=== PATIENT | male | born 1980 | race Caucasian/White ===

== ENCOUNTER 2019-09-28 19:20 | Emergency (ER) | payer OTHER, SELFPAY ==
[2019-09-28 19:30] VITALS: BP 147/103; PULSE 113; RESP 20; TEMP 37.2; O2SAT 99
--- NOTE | 2019-09-28 19:40 | ED.GENADULT ---
HPI - General Adult General Chief complaint: Upper Respiratory Infection Stated complaint: portillo sore throat and body ache Time Seen by Provider: 09/28/19 19:45 Source: patient Mode of arrival: ambulatory Limitations: no limitations History of Present Illness HPI narrative: 38-year-old male patient presents to the [facility] with complaints of cold symptoms that started yesterday. Patient states he has had some nasal congestion, runny nose, cough, body aches, fatigue and a sore throat. Denies any chest pain but states he has had a little bit of shortness of breath at times. Patient denies taking anything for his symptoms. Patient states he does have history of high blood pressure but does not take the medications because he does not want to. Patient states he is currently not working at this time. Related Data Home Medications Medication Instructions Recorded Confirmed No Home Medications 09/28/19 09/28/19 Allergies Allergy/AdvReac Type Severity Reaction Status Date / Time No Known Allergies Allergy Verified 09/28/19 19:37 Review of Systems Review of Systems: Narrative: CONSTITUTIONAL: Denies fever, chills, or sweats. EYES: Denies visual changes, redness, or discharge. ENT: Positive rhinorrhea, congestion, sore throat, denies otalgia. CARDIOVASCULAR: Denies chest pain, palpitations, or edema. RESPIRATORY: Positive cough with dyspnea. GASTROINTESTINAL: Denies abdominal pain, nausea, vomiting, or diarrhea. GENITOURINARY: Denies dysuria or hematuria. SKIN: Denies rash or itching. MUSCULOSKELETAL: Denies back pain, joint pain, or myalgia. NEUROLOGIC: Denies headache, numbness, or weakness. PSYCHIATRIC: Denies anxiety or depression. PMFSH Comments At the time of my signature I agree with nursing past medical history, surgical, social, and family history. There is no relevant family history pertinent to the presenting complaint. Exam Narrative: Exam Narrative: GENERAL: ill-appearing, well-nourished, and in no acute distress. HEAD: Normocephalic, atraumatic. EYES: PERRLA and EOMI. ENT: Nares with erythema and edema noted bilaterally, no rhinorrhea or epistaxis. Mucous membranes moist. Bilateral TMs are clear with no erythema or foreign bodies to the canal. Posterior pharynx no erythema, tonsillectomy, exudates or lesions present. NECK: Supple. No lymphadenopathy CHEST: Clear to auscultation. No respiratory distress. Patient able to talk in clear complete sentences. No tripoding noted. HEART: Regular rate and rhythm. No murmur heard. Normal peripheral pulses. ABDOMEN: Soft, nontender, nondistended, normal active bowel sounds. EXTREMITIES: Normal range of motion. No edema. SKIN: Warm, dry, no rash. NEURO: No focal deficits. Alert and oriented x3. Course Vital Signs Vital signs: Vital Signs Temperature 37.2 C 09/28/19 19:30 Pulse Rate 113 H 09/28/19 19:30 Respiratory Rate 09/28/19 19:30 Blood Pressure 147/103 H 09/28/19 19:30 Pulse Oximetry 99 09/28/19 19:30 Temperature 37.2 C 09/28/19 19:30 Pulse Rate 113 H 09/28/19 19:30 Respiratory Rate 09/28/19 19:30 Blood Pressure 147/103 H 09/28/19 19:30 Pulse Oximetry 99 09/28/19 19:30 Vital signs reviewed. The patient has been informed that they may have pre-hypertension or Hypertension based on a BP reading in the department. I recommend that the patient call the primary care provider listed on their discharge instructions or a physician of their choice this week to arrange follow up for further evaluation of possible pre-hypertension or Hypertension Medical Decision Making Differential Diagnosis Differential Diagnosis: Differential diagnosis: Allergic rhinitis, chronic sinusitis, tonsillitis, acute sinusitis, infectious mononucleosis, seasonal influenza, pertussis, diphtheria, meningococcal disease, viral syndrome, viral bronchitis, RSV, COVID-19 Patient that his bedside strep test today is negative. Discussed with him that t
== END 2019-09-28 19:56 | disposition home or self-care (01) ==
PROVIDERS: Emergency Provider Nurse Practitioner Family
DX: J06.9 Acute upper respiratory infection, unspecified (principal); R05 Cough; Z20.828 Contact with and (suspected) exposure to other viral communicable diseases; I10 Essential (primary) hypertension
CPT/HCPCS: 87081; 87880; 99213; G0463

== ENCOUNTER 2020-09-21 10:14 | Emergency (ER) | payer OTHER, SELFPAY ==
[2020-09-21 10:25] VITALS: BP 138/98; PULSE 90; RESP 18; TEMP 36.7; O2SAT 99
--- NOTE | 2020-09-21 11:42 | ED.SKABFB ---
HPI - Skin/Abscess/Foreign Bdy General Chief complaint: Skin/Abscess/Foreign Body Stated complaint: Stitches removed from right Hand Time Seen by Provider: 09/21/20 11:42 Source: patient and RN notes reviewed Mode of arrival: ambulatory Limitations: no limitations History of Present Illness HPI narrative: 39 year old male presents to express care for removal of some stitches from his dorsal right hand. 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 He was taken to [facility] and had to have vein sewn to stop bleeding of wound of dorsal aspect of his right hand prior to them suturing his skin of his hand wound. Patient states that he was suppose to go back to [place] yesterday for follow up and to get sutures out but he had to work and couldn't make the appointment. He states he is unsure how many sutures he has in top of right hand. He states that he removed one, one broke off and he squeezed a little pus out of the area this morning. Patient denies any fevers, chills or sweats.Wound is noted to be red with no drainage noted at this time. MD complaint: other (removal of sutures) Onset (ago): week(s) (1.5 week) Related Data Allergies Allergy/AdvReac Type Severity Reaction Status Date / Time No Known Allergies Allergy Verified 09/21/20 10:31 Review of Systems Review of Systems: CONSTITUTIONAL: Denies fever, chills, or sweats. EYES: Denies visual changes, redness, or discharge. ENT: Denies rhinorrhea, congestion, sore throat, or otalgia. CARDIOVASCULAR: Denies chest pain, palpitations, or edema. RESPIRATORY: Denies cough or dyspnea. GASTROINTESTINAL: Denies abdominal pain, nausea, vomiting, or diarrhea. GENITOURINARY: Denies dysuria or hematuria. SKIN: Denies rash or itching.positive for laceration to the right dorsal hand that was sutured 1.5 weeks ago at [facility] after injury, some redness of wound noted with no drainage noted or any surrounding acute redness, unsure how many sutures were originally placed patient is unsure and he has attempted to remove some himself. MUSCULOSKELETAL: Denies back pain, joint pain, or myalgia. NEUROLOGIC: Denies headache, numbness, or weakness. PSYCHIATRIC: Denies anxiety or depression. All systems reviewed & are unremarkable except as noted in HPI and below PMFSH Past Medical History Medical History (Updated 09/24/20 @ 16:37 by Chelo Crawford NP) Grade 3 separation of right shoulder Hypertension Surgical History Surgical History (Updated 09/24/20 @ 16:45 by Chelo Crawford NP) History of bunionectomy History of eye surgery eye muscle surgery History of hip surgery History of knee surgery History of thumb surgery Family History Family History (Updated 09/24/20 @ 16:41 by Chelo Crawford NP) Other No significant family history Social History Social History (Updated 09/24/20 @ 16:41 by Chelo Crawford NP) Additional smoking assessment comments: Denies tobacco use Alcohol intake: unknown Substance use: unknown Living arrangements: with family Gender identity (if verbalized by the patient): Male Comments At time of signature, agree with nursing past medical, surgical, social and family history. There is no relevant family history pertinent to the presenting complaint Exam Narrative: GENERAL: Well-appearing, well-nourished, and in no acute distress. HEAD: Normocephalic, atraumatic. EYES: PERRLA and EOMI. ENT: Nares clear, no rhinorrhea or epistaxis. Mucous membranes moist. NECK: Supple. No lymphadenopathy CHEST: Clear to auscultation. No respiratory distress. SaO2 99% on room air HEART: Regular rate and rhythm. No murmur heard. Normal peripheral pulses. ABDOMEN: Soft, nontender, nondistended, normal active bowel sounds. EXTREMITIES: Normal range of motion. No edema. SKIN: Warm, dry, no rash,wound to dorsal aspect of his right hand which had stitches placed at [place] 1.5 weeks ago, removed three stitc
== END 2020-09-21 12:02 | disposition home or self-care (01) ==
PROVIDERS: Emergency Provider Registered Nurse
DX: S61.411D Laceration without foreign body of right hand, subsequent encounter (principal); W45.8XXD Other foreign body or object entering through skin, subsequent encounter; I10 Essential (primary) hypertension
CPT/HCPCS: 99213; G0463

== ENCOUNTER 2021-02-02 19:14 | Emergency (ER) | payer OTHER, SELFPAY ==
[2021-02-02 19:19] VITALS: BP 166/107; PULSE 116; RESP 18; TEMP 36.6; O2SAT 100
[2021-02-02 19:32] VITALS: BP 166/107; PULSE 116; RESP 24; TEMP 36.6; O2SAT 100
--- NOTE | 2021-02-02 19:44 | ED.URI ---
HPI - URI/Sore Throat General Chief Complaint: Upper Respiratory Infection Stated Complaint: Sore Throat Time Seen by Provider: 02/02/21 19:36 Source: patient and RN notes reviewed Mode of arrival: ambulatory Limitations: no limitations History of Present Illness HPI Narrative: Patient presents today complaint of a 2-day history of sore throat, body aches, and headache with mild cough. Denies any additional symptoms. He currently rates his pain 2/10 and has been taking Excedrin with some relief. MD elicited complaint: sore throat Related Data Home Medications Medication Instructions Recorded Confirmed No Home Medications 02/02/21 02/02/21 Allergies Allergy/AdvReac Type Severity Reaction Status Date / Time No Known Allergies Allergy Verified 02/02/21 19:33 Review of Systems Review of Systems: CONSTITUTIONAL: Denies s, fever, chills, or sweats.+ Body aches EYES: Denies visual changes, redness, or discharge. ENT: Denies rhinorrhea, congestion, or otalgia.+ Sore throat CARDIOVASCULAR: Denies chest pain, palpitations, or edema. RESPIRATORY: Denies dyspnea.+ Cough GASTROINTESTINAL: Denies abdominal pain, nausea, vomiting, or diarrhea. GENITOURINARY: Denies dysuria or hematuria. SKIN: Denies rash, itching, or wounds. MUSCULOSKELETAL: Denies back pain, joint pain, or myalgia. NEUROLOGIC: Denies numbness, tingling, or weakness.+ Headache PSYCH: Denies depression or anxiety. [facility] Past Medical History Medical History Grade 3 separation of right shoulder Hypertension Surgical History Surgical History History of bunionectomy History of eye surgery eye muscle surgery History of hip surgery History of knee surgery History of thumb surgery Family History Family History Other No significant family history Social History Social History Additional smoking assessment comments: Denies tobacco use Alcohol intake: unknown Substance use: unknown Gender identity (if verbalized by the patient): Male Comments At time of signature, I have reviewed and agree with nursing past medical, surgical, social and family history unless otherwise noted. Please see nursing chart for further information. There is no relevant family history pertinent to the presenting complaint Exam Narrative: GENERAL: Well-appearing, well-nourished, and in no acute distress. HEAD: Normocephalic, atraumatic. EYES: EOMI. No redness or drainage. Conjunctivae normal. ENT: Mucous membranes pink and moist. Nares clear. No rhinorrhea. TMs normal bilaterally. Throat mildly erythematous. Tonsils 2+ with exudate. Uvula midline. NECK: Normal AROM. Supple. No lymphadenopathy. CHEST: No respiratory distress. Clear to auscultation. HEART: Regular rate and rhythm. No murmur appreciated. Normal peripheral pulses. EXTREMITIES: Normal range of motion. No edema. SKIN: Warm, dry, no rash. Capillary refill normal. Normal skin turgor. NEURO: No focal deficits. Alert and oriented x3. Gait steady. PSYCH: Normal affect. No signs of depression or anxiety. Course Vital Signs Vital signs: Vital Signs Temperature 97.9 F 02/02/21 19:19 Pulse Rate 116 H 02/02/21 19:19 Respiratory Rate 24 H 02/02/21 19:19 Blood Pressure 166/107 H 02/02/21 19:19 Pulse Oximetry 100 02/02/21 19:19 Temperature 97.9 F 02/02/21 19:32 Pulse Rate 116 H 02/02/21 19:32 Respiratory Rate 24 H 02/02/21 19:32 Blood Pressure 166/107 H 02/02/21 19:32 Pulse Oximetry 100 02/02/21 19:32 Reviewed. Pt has been instructed to follow up with his PCP regarding his elevated blood pressure today. Patient's respiratory rate upon my exam was 18. MDM - URI/Sore Throat Differential Diagnosis Differential diagnosis: Likely upp
[2021-02-02 19:52] VITALS: BP 152/110
== END 2021-02-02 19:52 | disposition home or self-care (01) ==
PROVIDERS: Emergency Provider Nurse Practitioner
DX: J02.9 Acute pharyngitis, unspecified (principal); I10 Essential (primary) hypertension
CPT/HCPCS: 87081; 87880; 99213; G0463

== ENCOUNTER 2021-12-15 16:25 | Emergency (ER) | payer OTHER, SELFPAY ==
[2021-12-15 16:40] VITALS: BP 152/96; PULSE 90; RESP 20; TEMP 37.1; O2SAT 99
--- NOTE | 2021-12-15 17:18 | ED.URI ---
HPI - URI/Sore Throat General Chief Complaint: Upper Respiratory Infection Stated Complaint: sore throat cough chest congestion Time Seen by Provider: 12/15/21 17:18 Source: patient and RN notes reviewed Mode of arrival: ambulatory Limitations: no limitations History of Present Illness HPI Narrative: 41-year-old male presents to the [facility] with cough, congestion and sore throat since last night. No treatment prior to arrival Related Data Home Medications Medication Instructions Recorded Confirmed No Home Medications 02/02/21 12/15/21 Allergies Allergy/AdvReac Type Severity Reaction Status Date / Time No Known Allergies Allergy Verified 12/15/21 16:49 Review of Systems Review of Systems: All systems reviewed & are unremarkable except as noted in HPI and below Constitutional: Constitutional: Reports as per HPI, Reports chills and Reports fever(s) Eyes: Eyes: Reports no additional eye complaints ENT: Reports system reviewed and no additional complaints, except as documented Cardiovascular: Cardiovascular: Reports no additional cardiovascular complaints Respiratory: Respiratory: Reports no additional respiratory complaints Gastrointestinal: Gastrointestinal: Reports no additional gastrointestinal complaints Musculoskeletal: Musculoskeletal: Reports no additional musculoskeletal complaints Integumentary/Breasts: Skin/Breast: Reports system reviewed and no additional complaints, except as docu Neurologic: Reports system reviewed and no additional complaints, except as documented Psychiatric: Psychiatric: Reports no additional psychiatric complaints Allergic/Immunologic: Allergic/Immunologic: Reports no additional allergic/immunologic complaints [facility] Past Medical History Medical History Grade 3 separation of right shoulder Hypertension Surgical History Surgical History History of bunionectomy History of eye surgery eye muscle surgery History of hip surgery History of knee surgery History of thumb surgery Family History Family History Other No significant family history Social History Social History Additional smoking assessment comments: Denies tobacco use Alcohol intake: unknown Substance use: unknown Gender identity (if verbalized by the patient): Male Comments At the time of my signature, I reviewed and agree with the nursing past medical, surgical, social, and family history. There is no relevant family history pertinent to the patient complaint. Exam Const: General: healthy appearing, no acute distress, alert and well nourished Nutritional Appearance: well nourished Orientation/consciousness: patient oriented x3 Limitations: no limitations HENMT: Head: normal to inspection Ears: external ears normal, TM's normal bilaterally and EAC's normal Face/Nose/Sinus: Normal external nose present and Normal nares present Face and sinus: normal facial exam Mouth: Yes Normal oral and palatal mucosa present, Yes lip normal and Yes moist mucous membranes Throat: posterior oropharynx normal and uvula midline Eyes: General: appearance normal, both eyes and all related structures Conjunctivae: conjunctivae normal Pupils: Equal, round and reactive pupils present Neck: Neck: normal visual inspection, no lymphadenopathy and no meningeal signs Chest: Chest palpation & inspection: normal inspection of the chest Resp: Effort & Inspection: normal respiratory effort and no use of accessory muscles Auscultation: clear to auscultation bilaterally, no crackles, no rales, no rhonchi and no wheezes Cardio: Rate: regular rate Rhythm: regular rhythm Skin: General skin exam: normal color Rashes: no rashes Wounds: no wounds Neuro: General: patient oriented x3, moves all
== END 2021-12-15 17:30 | disposition home or self-care (01) ==
PROVIDERS: Emergency Provider Nurse Practitioner
DX: J06.9 Acute upper respiratory infection, unspecified (principal); I10 Essential (primary) hypertension
CPT/HCPCS: 87081; 87804; 87880; 99213; G0463

== ENCOUNTER 2022-04-16 17:07 | Emergency (ER) | payer OTHER, SELFPAY ==
[2022-04-16 17:19] VITALS: BP 150/97; PULSE 97; RESP 16; TEMP 37.2; O2SAT 98
--- NOTE | 2022-04-16 17:48 | ED.WOUNDLAC ---
HPI - Wound/Laceration General Chief Complaint: Wound/Laceration Stated Complaint: Laceration to Forehead Time Seen by Provider: 04/16/22 17:50 Source: patient Mode of arrival: ambulatory Limitations: no limitations History of Present Illness HPI narrative: 41 y/o male presented for c/o right forehead laceration that occurred today 1630. State he was struck by a pipe which caused a cut. He is utd on tetanus. Denies LOC, denies headache, dizziness, nausea, vomiting or bleeding to the site. Related Data Home Medications Medication Instructions Recorded Confirmed losartan 50 mg tablet 50 mg PO DIRECTED 04/16/22 04/16/22 Allergies Allergy/AdvReac Type Severity Reaction Status Date / Time No Known Allergies Allergy Verified 04/16/22 17:20 Review of Systems Review of Systems: CONSTITUTIONAL: Denies body aches, fever, chills, or sweats. EYES: Denies visual changes, redness, or discharge. ENT: Denies rhinorrhea, congestion CARDIOVASCULAR: Denies chest pain, palpitations, or edema. RESPIRATORY: Denies cough or dyspnea. GASTROINTESTINAL: Denies abdominal pain, nausea, vomiting, or diarrhea. SKIN: laceration to forehead MUSCULOSKELETAL: Denies back pain, joint pain, or myalgia. NEUROLOGIC: Denies headache, numbness, tingling, or weakness. [facility] Past Medical History Medical History Grade 3 separation of right shoulder Hypertension Surgical History Surgical History History of bunionectomy History of eye surgery eye muscle surgery History of hip surgery History of knee surgery History of thumb surgery Family History Family History Other No significant family history Social History Social History Additional smoking assessment comments: Denies tobacco use Alcohol intake: unknown Substance use: unknown Living arrangements: with family Gender identity (if verbalized by the patient): Male Comments At time of signature, I have reviewed and agree with nursing past medical, surgical, social and family history unless otherwise noted. Please see nursing chart for further information. There is no relevant family history pertinent to the presenting complaint Exam Narrative: GENERAL: Well-appearing HEAD: Normocephalic EYES: conjunctivae clear, and EOMI. ENT: Mucous membranes moist. Oropharynx without edema, erythema or lesions. CHEST: Clear to auscultation. HEART: Regular rate and rhythm. SKIN: Warm, dry. approx 2cm linear laceration to right upper forehead, edges are approximated, no drainage, mild tenderness, no bruising. NEURO: Alert and oriented x3. Course Course Emergency Course: Patient is aware of diagnosis, understands and agrees to treatment plan. Anticipatory guidance given. Patient agrees to follow-up as directed and is aware of reasons to seek care at the emergency department. Portions of this record may have been created with voice recognition software Level of Care: Express Care Visit Vital Signs Vital signs: Vital Signs Temperature 99.0 F 04/16/22 17:19 Pulse Rate 97 04/16/22 17:19 Respiratory Rate 16 04/16/22 17:19 Blood Pressure 150/97 H 04/16/22 17:19 Pulse Oximetry 98 04/16/22 17:19 Oxygen Delivery Room Air 04/16/22 17:19 Temperature 99.0 F 04/16/22 17:19 Pulse Rate 97 04/16/22 17:19 Respiratory Rate 16 04/16/22 17:19 Blood Pressure 150/97 H 04/16/22 17:19 Pulse Oximetry 98 04/16/22 17:19 Oxygen Delivery Room Air 04/16/22 17:19 Reviewed Procedures Laceration right forehead: Date: 04/16/22 Size (cm): 2 Description: linear and clean ====== Skin Level ====== Skin layer closed with: steri strips ====== Subcutaneous Layer ====== ====== Muscle Lay
== END 2022-04-16 18:03 | disposition home or self-care (01) ==
PROVIDERS: Emergency Provider Nurse Practitioner Family; PCP Internal Medicine
DX: S01.81XA Laceration without foreign body of other part of head, initial encounter (principal); W22.8XXA Striking against or struck by other objects, initial encounter; I10 Essential (primary) hypertension
CPT/HCPCS: 99212; G0463

== ENCOUNTER 2022-06-28 19:38 | Emergency (ER) | payer OTHER, SELFPAY ==
--- NOTE | 2022-06-28 19:43 | ED.WOUNDLAC ---
HPI - Wound/Laceration General Chief Complaint: Wound/Laceration Stated Complaint: Laceration to Finger Time Seen by Provider: 06/28/22 19:43 Source: patient and RN notes reviewed History of Present Illness HPI narrative: Patient is a 41-year-old male who presents to the Urgent Care with complaints of a laceration to the left index finger. Patient states that the initial injury happened approximately 1 month ago on a chain saw and he never had the wound closed. Patient states that then ?popped open again today around 5:00 p.m. while cleaning his motorcycle and ?. Patient is up-to-date on tetanus and is on multiple antibiotics for a recent surgery. Patient has not done anything for the wound prior to arrival with the exception of covering with a Band-Aid. No other acute complaints. No acute distress noted. Patient aware of the plan of care. Some parts of this dictation were generated by voice recognition software and may contain typographical and/or grammatical inaccuracies. Related Data Home Medications Medication Instructions Recorded Confirmed losartan 50 mg tablet 50 mg PO DIRECTED 04/16/22 04/16/22 amoxicillin 875 mg-potassium tablet 06/28/22 clavulanate 125 mg tablet cyclobenzaprine 10 mg tablet mg 06/28/22 hydrocodone 5 mg-acetaminophen 325 tablet 06/28/22 mg tablet losartan 50 mg tablet 50 mg PO DAILY 06/28/22 06/28/22 naloxone 4 mg/actuation nasal spray See Rx Instructions .Route .COMPLEX 06/28/22 06/28/22 ondansetron 4 mg disintegrating 4 mg PO PRN PRN Nausea And Vomiting 06/28/22 06/28/22 tablet oxybutynin chloride 10 mg 10 mg PO DAILY 06/28/22 06/28/22 tablet,extended release 24 hr oxycodone-acetaminophen 5 mg-325 1 tablet PO PRN PRN Pain (Scale 06/28/22 06/28/22 mg tablet Score 7-10) polyethylene glycol 3350 17 17 g PO DAILY 06/28/22 06/28/22 gram/dose oral powder trazodone 50 mg tablet 50 mg PO HS 06/28/22 06/28/22 Allergies Allergy/AdvReac Type Severity Reaction Status Date / Time No Known Allergies Allergy Verified 06/28/22 19:51 Review of Systems Review of Systems: CONSTITUTIONAL: Denies fever, chills, or sweats. EYES: Denies visual changes, redness, or discharge. ENT: Denies rhinorrhea, congestion, sore throat, or otalgia. CARDIOVASCULAR: Denies chest pain, palpitations, or edema. RESPIRATORY: Denies cough or dyspnea. GASTROINTESTINAL: Denies abdominal pain, nausea, vomiting, or diarrhea. GENITOURINARY: Denies dysuria or hematuria. SKIN: Laceration to left index finger MUSCULOSKELETAL: Denies back pain, joint pain, or myalgia. NEUROLOGIC: Denies headache, numbness, or weakness. All other systems reviewed are negative, except as documented in HPI. [facility] Past Medical History Medical History Grade 3 separation of right shoulder Hypertension Surgical History Surgical History History of bunionectomy History of eye surgery eye muscle surgery History of hip surgery History of knee surgery History of thumb surgery Family History Family History Other No significant family history Social History Social History Additional smoking assessment comments: Denies tobacco use Alcohol intake: unknown Substance use: unknown Living arrangements: with family Gender identity (if verbalized by the patient): Male Comments At the time of my signature, I reviewed and agree with the nursing past medical, surgical, social, and family history. There is no relevant family history pertinent to the patient complaint. Exam Narrative: GENERAL: This is a well-nourished, well-developed patient, in no apparent distress. HEAD: normocephalic, atraumatic. EYES: PERRL. Sclera clear/white. Vision is grossly intact. 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
[2022-06-28 19:45] VITALS: BP 130/92; PULSE 110; RESP 18; TEMP 36.8; O2SAT 100
[2022-06-28 19:50] VITALS: BP 130/92; PULSE 110; RESP 18; TEMP 36.8; O2SAT 100
[2022-06-28 20:00] VITALS: BP 130/92; PULSE 110; RESP 18; TEMP 36.8; O2SAT 100
--- NOTE | 2022-06-28 20:21 | PC.NURSE ---
WOUND WAS CLEANED, DERMABOND, AND FINGER SPLINT WERE APPLIED. +PMS POST PROCEDURES.
== END 2022-06-28 20:05 | disposition home or self-care (01) ==
PROVIDERS: Emergency Provider Nurse Practitioner Family; PCP Internal Medicine
DX: S61.211A Laceration without foreign body of left index finger without damage to nail, initial encounter (principal); W29.3XXA Contact with powered garden and outdoor hand tools and machinery, initial encounter; I10 Essential (primary) hypertension
CPT/HCPCS: 12001; 99212; G0463

== ENCOUNTER 2022-07-27 16:37 | Emergency (ER) | payer OTHER, SELFPAY ==
[2022-07-27 16:51] VITALS: BP 157/99; PULSE 99; RESP 16; TEMP 36.6; O2SAT 100
[2022-07-27 16:54] VITALS: BP 157/99; PULSE 99; RESP 16; TEMP 36.6; O2SAT 100
--- NOTE | 2022-07-27 17:17 | ED.SKABFB ---
HPI - Skin/Abscess/Foreign Bdy General Chief complaint: Extremity Injury, Upper Stated complaint: right thumb swollen Time Seen by Provider: 07/27/22 17:00 Source: patient Mode of arrival: ambulatory Limitations: no limitations History of Present Illness HPI narrative: [place] is a 41-year-old male patient presenting to the clinic today with complaints right thumb swelling, redness, and pain times 2-3 days. He reports last week he cut it on a yd flagged and 2 days ago he burned the side of his finger eat with a welder repair. No drainage or fever. Related Data Home Medications Medication Instructions Recorded Confirmed ascorbic acid (vitamin C) 500 mg 500 mg PO DAILY 07/27/22 07/27/22 tablet (Vitamin C) ferrous sulfate 325 mg (65 mg mg 07/27/22 iron) tablet (FeroSul) Allergies Allergy/AdvReac Type Severity Reaction Status Date / Time No Known Allergies Allergy Verified 07/27/22 16:52 Review of Systems Review of Systems: Pertinent positives per HPI. Patient denies any fever, chills, rash, headache, visual changes, dizziness, cough, runny nose, sore throat, shortness of breath, chest pain, palpitations, nausea, vomiting, diarrhea, constipation, abdominal pain, or any urinary issues. [facility] Past Medical History Medical History Grade 3 separation of right shoulder Hypertension Surgical History Surgical History History of bunionectomy History of eye surgery eye muscle surgery History of hip surgery History of knee surgery History of thumb surgery Family History Family History Other No significant family history Social History Social History Additional smoking assessment comments: Denies tobacco use Alcohol intake: unknown Substance use: unknown Living arrangements: with family Gender identity (if verbalized by the patient): Male Comments At the time of my signature, I reviewed and agree with the nursing past medical, surgical, social, and family history. There is no relevant family history pertinent to the patient complaint. Exam Narrative: General: Well-developed, well nourished, in no apparent distress Head: Normocephalic, atraumatic. Cardio: Regular rate and rhythm, s1 and s2 normal, no murmur appreciated. Resp: Clear to auscultation bilaterally, no rhonchi, rales, wheezing or rubs. Integumentary: [place], warm, and dry, close wound to the lateral thumb with redness, erythema, and swelling Course Course Emergency Course: Portions of this record may have been created with voice recognition software. Level of Care: Express Care Visit Vital Signs Vital signs: Vital Signs Temperature 36.6 C 07/27/22 16:51 Pulse Rate 99 07/27/22 16:51 Respiratory Rate 16 07/27/22 16:51 Blood Pressure 157/99 H 07/27/22 16:51 Pulse Oximetry 100 07/27/22 16:51 Oxygen Delivery Room Air 07/27/22 16:51 Temperature 36.6 C 07/27/22 16:54 Pulse Rate 99 07/27/22 16:54 Respiratory Rate 16 07/27/22 16:54 Blood Pressure 157/99 H 07/27/22 16:54 Pulse Oximetry 100 07/27/22 16:54 Oxygen Delivery Room Air 07/27/22 16:54 Vital signs reviewed MDM - Skin/Abscess/Foreign Bdy MDM Narrative Medical decision making narrative: At the time of visit patient is resting comfortably on the exam table. I suspect patient has skin infection/cellulitis to the right thumb. Will send in prescription for doxycycline. Supportive measures were discussed with the patient he voiced understanding discharge instructions agrees to treatment plan. Differential Diagnosis Differential diagnosis: Likely abscess of skin or subcutaneous tissue, cellulitis, insect bites and contact dermatitis Discharge Plan Discharge Clinical Impression: Bacteria
== END 2022-07-27 17:22 | disposition home or self-care (01) ==
PROVIDERS: Emergency Provider Nurse Practitioner Family; PCP Family Medicine
DX: L08.9 Local infection of the skin and subcutaneous tissue, unspecified (principal); B96.89 Other specified bacterial agents as the cause of diseases classified elsewhere; L03.011 Cellulitis of right finger; I10 Essential (primary) hypertension
CPT/HCPCS: 99213; G0463

== ENCOUNTER 2023-10-29 14:46 | Emergency (ER) | payer OTHER, SELFPAY ==
[2023-10-29 14:46] VITALS: BP 153/95; PULSE 94; RESP 20; TEMP 36.6; O2SAT 97
--- NOTE | 2023-10-29 16:05 | ED.EAR ---
HPI - Ear Problem General Chief complaint: Ear Stated complaint: LT Ear Pain Time Seen by Provider: 10/29/23 15:40 Source: patient, RN notes reviewed and old records reviewed Mode of arrival: ambulatory Limitations: no limitations History of Present Illness HPI Narrative: 43 year old male presents to [facility] care with complaints of left ear pain for the past 3 days stating the whole side of his left head hurts Patient reports that he has been taking Ibuprofen for his pain. Patient denies any drainage from his left ear, denies any recent swimming. Patient reports no known fevers chills or sweats or any body aches. MD Complaint: ear pain Location: left ear Duration: constant Severity: moderate Discharge from ear: Reports no Treatment prior to arrival: oral analgesic Related Data Allergies Allergy/AdvReac Type Severity Reaction Status Date / Time No Known Allergies Allergy Verified 10/29/23 14:58 Review of Systems Review of Systems: CONSTITUTIONAL: Denies malaise, chills, sweats, or fever. EYES: Denies visual changes, redness, or discharge. ENT: Reports rhinorrhea, congestion, sinus pain,positive for otalgia and no sore throat. CARDIOVASCULAR: Denies chest pain, palpitations, or edema. RESPIRATORY: Reports cough.? Denies dyspnea. GASTROINTESTINAL: Denies abdominal pain, nausea, vomiting, diarrhea SKIN: Denies rash or itching. MUSCULOSKELETAL: Denies myalgia. NEUROLOGIC: reports headache. All systems reviewed & are unremarkable except as noted in HPI and below PMFSH Past Medical History Medical History Grade 3 separation of right shoulder Hypertension Surgical History Surgical History History of bunionectomy History of eye surgery eye muscle surgery History of hip surgery History of knee surgery History of thumb surgery Family History Family History Other No significant family history Social History Social History Additional smoking assessment comments: Denies tobacco use Alcohol intake: unknown Substance use: unknown Living arrangements: with family Gender identity (if verbalized by the patient): Male Comments At time of signature, agree with nursing past medical, surgical, social and family history. There is no relevant family history pertinent to the presenting complaint Exam Narrative: GENERAL: Well-appearing, well-nourished, and in no acute distress. HEAD: Normocephalic EYES: PERRLA, conjunctivae clear ENT: Nares clear, turbinates edematous and erythematous, clear discharge. Mucous membranes moist.Left TM red and bulging no drainage from ear,Right TM pearly garcia with dull light reflex ; no tragal tenderness. Oropharynx erythematous without lesions. Tonsils not enlarged and without exudate, no drooling, no hoarseness, no trismus, uvula midline. NECK: Supple. No lymphadenopathy CHEST: Clear to auscultation, breath sounds equal. No wheezing, rhonchi, rales, or stridor. No respiratory distress, speaks in full sentences.SAO2 97% on room air HEART: Regular rate and rhythm. No murmur heard. SKIN: Warm, dry, no rash. NEURO: Alert and oriented x3. PSYCH: Normal mood and affect Course Course Emergency Course: Patient is aware of diagnosis, understands and agrees to treatment plan.? Anticipatory guidance given.? Patient agrees to follow-up as directed and is aware of reasons to seek care at the emergency department. Portions of this record may have been created with voice recognition software Level of Care: Express Care Visit Vital Signs Vital signs: Vital Signs Temperature 36.6 C 10/29/23 14:46 Pulse Rate 94 10/29/23 14:46 Respiratory Rate 20 10/29/23 14:46 Blood Pressure 153/95 H 10/29/23 14:46 Pulse O
== END 2023-10-29 16:24 | disposition home or self-care (01) ==
PROVIDERS: Emergency Provider Registered Nurse
DX: H66.92 Otitis media, unspecified, left ear (principal); I10 Essential (primary) hypertension
CPT/HCPCS: 99213; G0463

== ENCOUNTER 2023-12-20 13:19 | Emergency (ER) | payer OTHER, SELFPAY ==
[2023-12-20 13:36] VITALS: BP 154/109; PULSE 99; RESP 16; TEMP 37; O2SAT 97
--- NOTE | 2023-12-20 13:59 | ED.EYEPROB ---
HPI - Eye Problem General Chief complaint: Eye Problems Stated complaint: Eye irritated Time Seen by Provider: 12/20/23 14:00 Source: patient, RN notes reviewed and old records reviewed Mode of arrival: ambulatory Limitations: no limitations History of Present Illness HPI Narrative: 43-year-old male to Express Care for complaint of right eye pain, redness, watering since waking up this morning. Patient reports that he was grinding plastic yesterday and wore eye protection. However he believes something may have fallen off of his clothing and into his eye. Patient reports sensation of foreign body. Patient attempted to use [id number] eye flushing kit prior to arrival, states symptoms worsened. Patient unable to do visual acuity chart as patient cannot keep eye open. patient denies corrective lenses or contacts. Patient has not seen eye doctor in several years. Patient resting in exam room, moderate discomfort. No acute distress. Related Data Home Medications Medication Instructions Recorded Confirmed cephalexin 500 mg capsule mg 12/20/23 sulfamethoxazole 800 tablet 12/20/23 mg-trimethoprim 160 mg tablet Allergies Allergy/AdvReac Type Severity Reaction Status Date / Time No Known Allergies Allergy Verified 12/20/23 13:27 Review of Systems Review of Systems: All systems reviewed & are unremarkable except as noted in HPI and below Constitutional: Constitutional: Reports no additional constitutional complaints Eyes: Eyes: Reports as per HPI, Reports eye discharge, Reports irritation, Reports eye pain and Reports photophobia ENT: Reports system reviewed and no additional complaints, except as documented Cardiovascular: Cardiovascular: Reports no additional cardiovascular complaints, Denies chest pain and Denies dyspnea Respiratory: Respiratory: Reports no additional respiratory complaints, Denies cough and Denies dyspnea Musculoskeletal: Musculoskeletal: Reports no additional musculoskeletal complaints Neurologic: Reports system reviewed and no additional complaints, except as documented Psychiatric: Psychiatric: Reports no additional psychiatric complaints [facility] Past Medical History Medical History Grade 3 separation of right shoulder Hypertension Surgical History Surgical History History of bunionectomy History of eye surgery eye muscle surgery History of hip surgery History of knee surgery History of thumb surgery Family History Family History Other No significant family history Social History Social History Additional smoking assessment comments: Denies tobacco use Alcohol intake: unknown Substance use: unknown Living arrangements: with family Gender identity (if verbalized by the patient): Male Comments At the time of my signature, I reviewed and agree with the nursing past medical, surgical, social, and family history. There is no relevant family history pertinent to the patient complaint. Exam Const: General: cooperative, no acute distress, alert, in distress moderate ( pain), anxious, tired appearing and well nourished Nutritional Appearance: well nourished Orientation/consciousness: patient oriented x3 Limitations: no limitations HENMT: Head: normal to inspection Ears: external ears normal Face/Nose/Sinus: Normal external nose present, Normal nares present, normal facial exam, No erythema and No edema Face and sinus: normal facial exam, no erythema and no edema Mouth: Yes Normal oral and palatal mucosa present Eyes: Alignment and Position: alignment normal and position normal Periorbital: periorbital findings normal Eyelids: eyelids normal Conjunctivae: conjunctivae normal Sclera: scleral abnormality right scleral exudate mucoid, scleral injection diffuse and scleral tenderness Cornea: corneas normal and fluorescein used Pupils: Equal, round and reactive pupils present, Pupils normal by confrontation and Pupil accommodation reflex normal Neck: Neck: normal visual inspection, full ROM and no meningeal signs Lymphatic: no lymphadenopathy noted and no lymphedema noted Chest: Chest palpation & inspection: normal inspection of the chest Resp: Effort & Inspection: normal respiratory effort and able to speak in complete sentences Auscultation: clear to auscultation bilaterally Cardio: Jugular venous distension: no JVD Rate: regular rate Rhythm: regular rhythm Back/Spine/Pelvis: Cervical Spine: cervical ROM normal Skin: General skin exam: normal color, no rashes or lesions noted and turgor normal Neuro: General: patient oriented x3, gait normal, moves all extremities and no meningeal signs Speech: normal speech Gait exam (Neuro): Normal gait present Extrem: General: normal to inspection, full ROM and capillary refill normal Psych: Appearance: grossly normal and well kempt Course Course Emergency Course: Topical anesthetic was instilled with good anesthesia using 1gtt of opth anesthetic agent (tetracaine). Fluorescein stain of the R eye was performed without uptake of dye. No epithelial defect was noted. NO FB, ulcer or dendritic lesions. Upper lid was everted and no FB or lesions were noted. NO Oralia sign. Normal saline irrigation eye solution was performed and the patient tolerated the procedure well, no adverse reaction or complications. Noted intraocular pressure readings. Some parts of this dictation were generated by voice recognition software and may contain typographical and/or grammatical inaccuracies. Level of Care: Express Care Visit Vital Signs Vital signs: Vital Signs Temperature 37.0 C 12/20/23 13:36 Pulse Rate 99 12/20/23 13:36 Respiratory Rate 16 12/20/23 13:36 Blood Pressure 154/109 H 12/20/23 13:36 Pulse Oximetry 97 12/20/23 13:36 Oxygen Delivery Room Air 12/20/23 13:36 Temperature 37.0 C 12/20/23 13:36 Pulse Rate 99 12/20/23 13:36 Respiratory Rate 16 12/20/23 13:36 Blood Pressure 154/109 H 12/20/23 13:36 Pulse Oximetry 97 12/20/23 13:36 Oxygen Delivery Room Air 12/20/23 13:36 reviewed MDM - Eye Problem MDM Narrative Medical decision making narrative: 43-year-old male to Express Care for complaint of right eye pain, redness, watering since waking up this morning. Patient reports that he was grinding plastic yesterday and wore eye protection. However he believes something may have fallen off of his clothing and into his eye. Patient reports sensation of foreign body. Patient attempted to use [id number] eye flushing kit prior to arrival, states symptoms worsened. Patient unable to do visual acuity chart as patient cannot keep eye open. patient denies corrective lenses or contacts. Patient has not seen eye doctor in several years. Patient resting in exam room, moderate discomfort. No acute distress. On exam, right diffuse scleral injection with mucoid drainage. Fluorescein used to rule out corneal abrasion. No foreign body noted. Patient is sitting uncomfortably in exam room nontoxic in appearance. Patient appropriate for outpatient treatment and follow-up. Discharge instructions reviewed with patient, as well as provided in writing per nursing staff. The instructions also include specific and strict return/GO TO THE ER as well as f/u information. All questions have been answered, and the patient deny any further questions with discharge and discharge plan. Some parts of this dictation were generated by voice recognition software and may contain typographical and/or grammatical inaccuracies. Differential Diagnosis Differential diagnosis: Likely corneal abrasion, conjunctivitis, acute iritis, hyphema, periorbital cellulitis, subconjunctival hemorrhage, glaucoma, corneal ulcer and ruptured globe Discharge Plan Discharge Clinical Impression: Irritation of right eye Patient Disposition: Home, Self-Care Condition: Stable Instructions: Eye Pain (ED) Additional Instructions: Please review attached instruction regarding eye pain and follow suggestions. Please complete entire course of antibiotic eye drops For new or worsening symptoms go directly to [facility] Emergency Department Prescriptions: New erythromycin 5 mg/gram (0.5 %) ointment 0.5 inch RIGHT EYE BID 5 Days Qty: 3.5 0RF No Action sulfamethoxazole-trimethoprim 800-160 mg tablet cephalexin 500 mg capsule Follow-up/Referrals: UNKNOWN,DOCTOR [Primary Care Provider] - Stand Alone Forms: Work/School Release IP
== END 2023-12-20 14:24 | disposition home or self-care (01) ==
PROVIDERS: Emergency Provider Nurse Practitioner Family
DX: H57.11 Ocular pain, right eye (principal); I10 Essential (primary) hypertension
CPT/HCPCS: 99213; A9270; G0463

== ENCOUNTER 2024-12-06 17:56 | Emergency (ER) | payer OTHER, SELFPAY ==
--- NOTE | ~2024-12-06 | XR_ITS ---
EXAMINATION: XR chest 2V, 12/06/2024 18:50 CDT HISTORY: covid +, SOB COMPARISON: No comparisons available. Technique: 2 views obtained. Findings: The lungs are clear, no effusion. No pneumothorax. Heart is normal size. Mediastinal and hilar contours are within normal limits. Bony thorax no acute abnormality. Impression: No acute cardiopulmonary abnormality. Reviewed, dictated and finalized at location P. Impression: No acute cardiopulmonary abnormality.
--- OUTSIDE RECORDS SUMMARY | 2024-12-06 17:58 | XMS_ITS | Encounter Summary ---
Author Organization [facility] Address [address] [place] [address] Care Team Providers Care Driller And Reamer Name Role Phone Conversion, History Primary Care Provider April bello Encounter Details Date Type Department Care Team (Late st Contact Info) Description 09/20/2006 Outpatient Historical [facility] Trauma and General Surgery [address] [id number] [place] [address] [place] [address] Social History Tobacco Use Types Packs/Day Years Used Date Smoking Tobacco: Never Assessed Sex and Gender Information Value Date Recorded Sex Assigned at Not on file 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 Gender Identity Not on file Sexual Orientation Not on file documented as of this encounter Plan of Treatment Not on file documented as of this encounter Visit Diagnoses Not on filedocumented in this encounter Additional Health Concerns Infection Onset Date Last Indicated Resolved Time MRSA Comment:08/2013 left foot Resolved per 12 month rule; skin intact per undress and assess 08/16/2013 08/16/2013 06/19/2022 7:59 AM CDT documented as of this encounter Care Teams Driller And Reamer Relationship Specialty Start Date End Date Conversion, History PCP - General 08/31/06 06/30/22 documented as of this encounter
--- OUTSIDE RECORDS SUMMARY | 2024-12-06 17:58 | XMS_ITS | Encounter Summary ---
Author Organization [facility] Address 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 Gender Identity Not on file Sexual Orientation Not on file documented as of this encounter Plan of Treatment Not on file documented as of this encounter Visit Diagnoses Diagnosis Sprain of wrist, unspecified site- Primary documented in this encounter Additional Health Concerns Infection Onset Date Last Indicated Resolved Time MRSA Comment:08/2013 left foot Resolved per 12 month rule; skin intact per undress and assess 08/16/2013 08/16/2013 06/19/2022 7:59 AM CDT documented as of this encounter Care Teams Data Analyst Etl Developer Relationship Specialty Start Date End Date Conversion, History PCP - General 08/31/06 06/30/22 documented as of this encounter
--- OUTSIDE RECORDS SUMMARY | 2024-12-06 17:58 | XMS_ITS | Encounter Summary ---
Author Organization [facility] Address [address] [place] [address] Care Team Providers Care Hand Outside Cutter Name Role Phone Conversion, History Primary Care Provider April bello Encounter Details Date Type Department Care Team (Late st Contact Info) Description 10/15/2006 Outpatient Historical [facility] Trauma and General Surgery [address] [phone] [place] [address] [place] [address] Social History Tobacco Use Types Packs/Day Years Used Date Smoking Tobacco: Never Assessed Sex and Gender Information Value Date Recorded Sex Assigned at Not on file 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
--- OUTSIDE RECORDS SUMMARY | 2024-12-06 17:58 | XMS_ITS | Clinical Summary ---
Author Organization [facility] Address [address] [place] [address] Care Team Providers Care Clinical Dietetic Technician Name Role Phone Unavailable Primary Care Provider Unavailabl e Source Comments [facility],non-owned Affiliates and Associated Physician Practices is amultiple site organization consisting of ambulatory clinics and hospital sitesin [place], [place]. This disclosure is being madepursuant to the Care Everywhere program and may not contain all information available regarding this patient. Last updated 17.[facility] Allergies No known active allergies Medications * Be aware that medications may not be up to date on this document. Alwaysverify current medications with the patient. cyclobenzaprine (FLEXERIL) 10 MG tablet Take 1 Tab by mouth every 8 hours as needed for Muscle Spasms. 15 Tab 0 05/25/2011 Active ibuprofen (MOTRIN) 600 MG tablet Take 1 Tab by mouth every 6 hours as needed for Pain. 20 Tab 0 05/25/2011 Active doxycycline (VIBRAMYCIN) 100 MG capsule Take 100 mg by mouth every 12 hours. 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 Gender Identity Not on file Sexual Orientation Not on file Last Filed Vital Signs Vital Sign Reading Time Taken Comments Blood Pressure 149/94 09/05/2013 7:30 PM CDT Pulse 117 09/05/2013 5:39 PM CDT Temperature 36.8 C (98.3 F) 09/05/2013 5:38 PM CDT Respiratory Rate 24 09/05/2013 5:39 PM CDT Oxygen Saturation 98% 09/05/2013 7:30 PM CDT Inhaled Oxygen Concentration - - Weight 86.2 kg (190 lb) 09/05/2013 5:39 PM CDT Height 170.2 cm (5' 7.01) 09/05/2013 5:39 PM CD T Body Mass Index 29.75 09/05/2013 5:39 PM CDT Plan of Treatment Health Maintenance Due Date Last Done Comments COLOGUARD (AGES 45-75) - COL ON CA SCREENING 1978 COLON MONITORING 1978 COLONOSCOPY - COLON CA SCREENING 1978 CT COLONOGRAPHY - COLON CA SCREENING 1978 Colorectal Cancer Screening 1978 FIT - COLON CA SCREENING 1978 FLEX SIG - COLON CA SCREENING 1978 LIPID TESTING 1978 HIV SCREENING 1993 HEPATITIS C SCREENING 10/19/1996 DTAP/TDAP/TD VACCINES (1 - Tdap) 1997 HEPATITIS B VACCINE (1 of 3 - 19+ 3-dose series) 1997 DEPRESSION SCREENING 02/12/2024 COVID-19 VACCINE (1 - 2023-2 5 season) 2024 INFLUENZA VACCINE (#1) 2024 ZOSTER VACCINE (1 of 2) 2028 HIB VACCINE Aged Out No longer eligi ble based on patient's age to complete this topic HPV VACCINE Aged Out No longer eligi ble based on patient's age to complete this topic MENINGOCOCCAL (Group B) VACC INE SHARED DECISION-MAKING Aged Out No longer eligibl e based on patient's age to complete this topic MENINGOCOCCAL GROUPS A/C/Y/W VACCINE Aged Out No longer eligible b ased on patient's age to complete this topic PNEUMOCOCCAL VACCINE Aged Out No long er eligible based on patient's age to complete this topic Insurance [place] MEDICAID - [facility]
--- OUTSIDE RECORDS SUMMARY | 2024-12-06 17:58 | XMS_ITS | Encounter Summary ---
Author Organization [facility] Address [address] 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
--- OUTSIDE RECORDS SUMMARY | 2024-12-06 17:58 | XMS_ITS | Encounter Summary ---
Author Organization [facility] Address [address] [place] [address] Care Team Providers Care Pulper Tender Name Role Phone Conversion, History Primary Care Provider April bello Encounter Details Date Type Department Care Team (Late st Contact Info) Description 09/04/2006 Outpatient Historical [facility] [address] [address] [facility] [place] [address] Mark Akbar MD [address] [place] [address] Social History Tobacco Use Types Packs/Day Years Used Date Smoking Tobacco: Never Assessed Sex and Gender Information Value Date Recorded Sex Assigned at Not on file 

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
--- OUTSIDE RECORDS SUMMARY | 2024-12-06 17:58 | XMS_ITS | Encounter Summary ---
Author Organization [facility] Address [address] [place] [address] Phone Care Team Providers Care Solar Installation Technician Name Role Phone Helen Stark MD Primary Care Provider [phone] Provider, None Primary Care Provider Unavailabl e Reason for Visit * Reason Onset Date Comments New Patient 12/07/2022 Encounter Details Date Type Department Care Team ([facility] st Contact Info) Description 12/07/2022 Telephone [facility] [address] [place] [address] Provider, None [place] New Patient Social History Tobacco Use Types Packs/Day Years Used Date Smoking Tobacco: Never Smokeless Tobacco: Never Alcohol Use Standard Drinks/Week Comments Not Currently 0 (1 standard drink = 0.6 oz pur e alcohol) Sex and Gender Information Value Date Recorded Sex Assigned at Not on file Legal Sex Male 5:42 AM CDT Gender Identity Not on file Sexual Orientation Not on file documented as of this encounter Miscellaneous Notes * Telephone Encounter - Mandy Dumont - 12/07/2022 12:17 PM CDT ----- Message from Khloe Griffith sent at 12/07/2022 9:13 AM CDT ----- Regarding: [facility] Primary Provider Request Insurance of patient: Geoff Name of person calling: [employer] Relationship to patient: self Preferred phone number: [phone] Alternate phone number: na Region / Office location preference: Bj Provider preference (male/female, specific provider name): female Willing to see someone other than physician, such as JAMIE BAE, resident? any Patient reason for appointment/any current symptoms: follow up for fibromyalgia Other information (including need for online marketing manager): na Route ALL calls to: P [facility] PATIENT SOCIAL INSURANCE ADMINISTRATOR documented in this encounter Plan of Treatment Not on file documented as of this encounter Visit Diagnoses Not on filedocumented in this encounter Additional Health Concerns Infection Onset Date Last Indicated Resolved Time COVID - 19 03/17/2023 03/17/2023 03/27/2023 12:1 6 AM ORACLE DRM CONSULTANT Influenza 03/17/2023 03/17/2023 03/24/2023 12:1 6 AM ORACLE DRM CONSULTANT RSV 06/05/2023 06/05/2023 07/03/2023 12:1 6 AM CDT Respiratory Rule-Out 11/10/2024 11/10/2024 025 6:59 AM CDT documented as of this encounter Care Teams Solar Installation Technician Relationship Specialty Start Date End Date Helen Stark MD [address] [place] [address] PCP - General Internal Medicine 06/01/22 03/16/23 Provider, None [place] PCP - General 03/17/23 documented as of this encounter
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
--- OUTSIDE RECORDS SUMMARY | 2024-12-06 17:58 | XMS_ITS | Clinical Summary ---
Author Organization [facility] Address [address] [place] [address] Phone Care Team Providers Care Commercial Loan Manager Name Role Phone Unavailable Primary Care Provider Unavailabl e Allergies No known active allergies Medications losartan 50 mg tablet Take 50 mg by mouth daily. Active naloxone (NARCAN) 4 mg/spray [place], Non-Aerosol EMERGENCY USE ONLY: Administer 1 spray (4 mg) in one nostril one time. May repeat in alternating nostrils every 2-3 min until responsive or EMS arrives. 2 Each 3 3 Active polyethylene glycol 3350 (MIRALAX) 17 gram/dose Powder DISSOLVE 1 SCOOP (17 GRAMS) IN 8 OUNCES OF LIQUID AND DRINK ENTIRE LIQUID BY MOUTH 2 TIMES DAILY 527 Gram 3 Active ferrous sulfate 325 mg (65 mg iron) tablet Take 1 Tablet (325 mg) by mouth 2 times daily. 60 Tablet 3 Active ascorbic acid, vitamin C, (Vitamin C) 500 mg tablet Take 1 Tablet (500 mg) by mouth 2 times daily. 60 Tablet 3 Active hydrocortisone (PROCTOZONE-HC) 2.5 % cream with perineal applicator Insert by rectum 2 times daily. 28 Gram 1 3 Active dibucaine (NUPERCAINAL) 1 % Ointment Apply to affected area 3 times daily as needed for Hemorrhoids or Discomfort. 28 Gram 3 Active Active Problems Patient Care Coordination No te Formatting of this note migh t be different from the original. GI: Dr. Erna Salvador/TRANSFER CAR OPERATOR: Bobbi Carrasquillo Problem Noted Date Diagnosed Date Other hemorrhoids 07/01/2022 S/P hemorrhoidectomy 07/01/2022 Nausea & vomiting 06/20/2022 Bright red rectal bleeding 06/19/2022 Iron deficiency anemia secondary to blood loss ( chronic) 06/19/2022 Blood in stool 06/19/2022 Hx of hepatitis C 06/19/2022 Headache 06/19/2022 Neck pain 06/19/2022 Acute kidney injury 06/01/2022 Depression 05/31/2022 Fibromyalgia 05/31/2022 IBS (irritable bowel syndrome) 05/31/2022 Methamphetamine abuse 05/31/2022 Ureteral calculus, left 05/31/2022 Hepatitis C virus infection 08/29/2021 Overview (06/19/2022): Last Assessment & Plan: Get preliminary blood work and then initiate treatment Hypertension 10/03/2018 Overview (06/19/2022): Last Assessment & Plan: Accelerated hypertension. Patient was diagnosed a year ago however did not like the doctor he saw and never filled his prescription. Patient is currently NPO for GI evaluation, will start patient on p.r.n. Labetalol. Continue to monitor. Will need oral antihypertensives once he can take p.o. Again. Iron deficiency anemia 10/03/2018 Overview (06/19/2022): Last Assessment & Plan: No baseline. Patient has been having black and bloody stools on and off for the last 2 years. He has never told anyone. He states he has not had bloody stools in the last 1-2 months. GI has been consulted, will await their evaluation. NPO until they see him. No anticoagulation. FOBT pending. Social History Tobacco Use Types Packs/Day Years Used Date Smoking Tobacco: Unknown Tobacco Cessation:Counseling Given: Not Answered Feeling Safe Answer Date Recorded Are you in a relationship wi th someone who hurts you emotionally and/or physically? No 07/01/2022 Food Insecurity Answer Date Recorded Social/Environmental Concerns No concerns Transportation Needs Answer Date Record ed Social/Environmental Concerns No concerns Housing Stability Answer Date Recorded Social/Environmental Concerns No concerns Utility Needs Answer Date Recorded Social/Environmental Concerns No concerns Sex and Gender Information Value Date Recorded Sex Assigned at Not on file Legal Sex Male 3:46 AM PLUGMAN Gender Identity Not on file Sexual Orientation Not on file Last Filed Vital Signs Vital Sign Reading Time Taken Comments Blood Pressure 139/88 07/18/2022 2:37 PM CDT Pulse 88 07/18/2022 2:37 PM CDT Temperature 36.8 C (98.2 F) 07/02/2022 11:07 AM CDT Respiratory Rate 16 07/02/2022 11:07 AM CDT Oxygen Saturation 96% 07/02/2022 11:07 AM CDT Inhaled Oxygen Concentration - - Weight 93.9 kg (207 lb) 07/18/2022 2:37 PM CDT Height 170.2 cm (5' 7) 07/18/2022 2:37 PM CDT Body Mass Index 32.42 07/18/2022 2:37 PM CDT Plan of Treatment Health Maintenance Due Date Last Done Comments HEPATITIS B VACCINES (1 of 3 - 19+ 3-dose series) 1997 FIT-DNA Q 3 years 10/25/2023 FIT/FOBT Q 1 year 10/25/2023 Flex Sig/CT Colonography Q 5 years 10/25/2023 INFLUENZA VACCINE (#1) 2024 DTAP/TDAP/TD VACCINES (3 - Td or Tdap) 09/06/2030 09/06/2020, 02/11/2013 COLORECTAL SCREENING 06/21/2032 06/21/2022, 06/21/2022, 10/04/2018, Additional history exists Colorectal Cancer Screening 06/21/2032 HPV VACCINES Aged Out No longer eligi ble based on patient's age to complete this topic Procedures Procedure Name Priority Date/Time Associated Diagnosis Comments COLONOSCOPY REPORT 06/21/2022 12 :55 PM CDT from Last 3 Months or Most Recently Relevant to Health Maintenance Results * COLONOSCOPY REPORT (06/21/2022 12:55 PM CDT) Narrative Procedure Note Erna Salvador MD - 06/21/2022 12:54 PM CDT [facility] GI Patient Name: Salinas Yancey Procedure Date: 06/21/2022 Date of : 1980 Admit Type: Inpatient Age: 41 Attending MD: Erna Salvador , , Procedure: Colonoscopy Indications: Hematochezia Providers: Erna Salvador Referring MD: History Conversion Requesting Provider: Medicines: Monitored Anesthesia Care Complications: No immediate complications. Procedure: After I obtained informed consent, the scope was passed under direct vision. Throughout the procedure, the patient's blood pressure, pulse, and oxygen saturations were monitored continuously. The Colonoscope was introduced through the anus and advanced to the cecum, identified by appendiceal orifice and ileocecal valve. The colonoscopy was performed without difficulty. The patient tolerated the procedure well. The quality of the bowel preparation was evaluated using the BBPS (Hamilton Bowel Preparation Scale) with scores of: Right Colon = 3, Transverse Colon = 3 and Left Colon = 3 (entire mucosa seen well with no residual staining, small fragments of stool or opaque liquid). The total BBPS score equals 9. Anatomical landmarks were photographed. Findings: Hemorrhoids were found on perianal exam. Large internal hemorrhoids were found during retroflexion. The exam was otherwise without abnormality. Impression: - Hemorrhoids found on perianal exam. - External and internal hemorrhoids. - The examination was otherwise normal. - No specimens collected. Recommendation: - Continue present medications. - Repeat colonoscopy in 10 years for screening purposes. - Consult surgery for consideration of hemorrhoidectomy. Procedure Code(s): --- Professional --- 64303, Colonoscopy, flexible; diagnostic, including collection of specimen(s) by brushing or washing, when performed (separate procedure) Diagnosis Code(s): --- Professional --- K64.8, Other hemorrhoids K92.1, Melena (includes Hematochezia) CPT copyright 2020 [employer]. All rights reserved. The codes documented in this report are preliminary and upon death surveys coder review may be revised to meet current compliance requirements. Erna Salvador, 06/21/2022 12:54:01 PM This report has been signed electronically. Number of Addenda: 0 Estimated Blood Loss: Estimated blood loss was minimal. Erna Salvador MD GI PROCEDURE ORDERABLES F inal Result from Last 3 Months or Most Recently Relevant to Health Maintenance Insurance Advance Directives For more information, please contact: [phone] * Full Code (Latest Code Status on File) Date Activated Date Inactivated Comments 07/01/2022 8:12 AM 07/02/2022 3:14 PM * Full Code Date Activated Date Inactivated Comments 06/19/2022 4:14 AM 06/22/2022 8:04 PM
--- OUTSIDE RECORDS SUMMARY | 2024-12-06 17:58 | XMS_ITS | Encounter Summary ---
Author Organization [facility] Address [address] [place] [address] Care Team Providers Care Operator Assistant I Cementing Name Role Phone Conversion, History Primary Care Provider April bello Encounter Details Date Type Department Care Team (Late st Contact Info) Description 11/08/2006 Outpatient Historical [facility] Tra[facility] [address] [facility] [place] [address] Mark Akbar MD [address] [place] [address] Social History Tobacco Use Types Packs/Day Years Used Date Smoking Tobacco: Never Assessed Sex and Gender Information Value Date Recorded Sex Assigned at Not on file Legal Sex Male 3:46 AM CUPOLA MELTER Gender Identity Not on file Sexual Orientation [...] documented as of this encounter Care Teams Operator Assistant I Cementing Relationship Specialty Start Date End Date Conversion, History PCP - General 08/31/06 06/30/22 documented as of this encounter
--- OUTSIDE RECORDS SUMMARY | 2024-12-06 17:58 | XMS_ITS | Clinical Summary ---
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 administer for symptoms of overdose (severe sleepiness, breathing problems, not responsive). Call 911. May use additional dose to repeat 1 spray intranasally in 2-3 minutes if needed. 2 Each 3 Active Additional Information Patient not taking.Reported on 06/05/2022 losartan (COZAAR) 50 MG Tablet Take 50 mg by mouth daily. 3 Active ondansetron (ZOFRAN-ODT) 4 MG TABLET DISPERSIBLE Take 1 Tablet by mouth every 6 hours as needed for Nausea - 1st line. 10 Tablet 3 Active prochlorperazin e (COMPAZINE) 5 MG Tablet Take 2 Tablets by mouth every 6 hours as needed (Headaches or nausea). 10 Tablet 4 Active albuterol 108 (90 Base) MCG/ACT Aerosol Solution take 2 Puffs by inhalation every 6 hours as needed for Wheezing. 8 g 4 Active albuterol (PROVENTIL/VENT SHELLIE) 1.25 MG/3ML Nebulizer Soln take 3 mL by inhalation every 4 hours as needed for Wheezing, Shortness of Breath or Cough. 75 mL 4 Active naproxen (NAPROSYN) 500 MG Tablet Take 1 Tablet by mouth 2 times daily as needed for Mild or more severe pain. 20 Tablet 4 Active HYDROcodone-brandi taminophen (NORCO) 5-325 MG TabletIndicatio ns:Cellulitis of left ear Take 1 Tablet by mouth every 8 hours as needed for Moderate or more severe pain. 12 Tablet 4 Active albuterol 108 (90 Base) MCG/ACT Aerosol Solution take 2 Puffs by inhalation every 6 hours as needed for Wheezing or Cough. 8 g 5 Active predniSONE (DELTASONE) 20 MG Tablet Take 2 Tablets by mouth daily for 3 days, THEN 1.5 Tablets daily for 3 days, THEN 1 Tablet daily for 3 days, THEN 0.5 Tablets daily for 3 days. 15 Tablet 5 025 Active Problems Problem Noted Date Diagnosed Date Acute kidney injury 06/01/2022 Ureteral calculus, left 05/31/2022 Hepatitis C 05/31/2022 Fibromyalgia 05/31/2022 Methamphetamine abuse 05/31/2022 IBS (irritable bowel syndrome) 05/31/2022 Depression 05/31/2022 Anemia 05/31/2022 Resolved Problems Problem Noted Date Diagnosed Date Resolved Date Urinary tract infection 06/05/202205/13 Encounters Date Type Department Care Team Description 11/10/2024 5:12 AM CDT - 11/10/2024 9:21 AM CDT Emergency [facility] Emergency [address] [place] [address] Roz Tamez MD Folkert, Gregory Dewitt, MD Dehydration Discharge Disposition: Discharged to home or Selfcare 11/10/2024 Travel from Last 3 Months Family History Medical History Relation Name Comments Hypertension Mother Relation Name Status Comments Mother Social History Tobacco Use Types Packs/Day Years Used Date Smoking Tobacco: Never Smokeless Tobacco: Never Tobacco Cessation:Counseling Given: Not Answered Alcohol Use Standard Drinks/Week Comments Not Currently 0 (1 standard drink = 0.6 oz pur e alcohol) Sex and Gender Information Value Date Recorded Sex Assigned at Not on file Legal Sex Male 5:42 AM CDT Gender Identity Not on file Sexual Orientation Not on file Last Filed Vital Signs Vital Sign Reading Time Taken Comments Blood Pressure 138/100 11/10/2024 9:00 AM CDT Pulse 73 11/10/2024 9:15 AM CDT Temperature 37.1 C (98.7 F) 11/10/2024 5:19 AM CDT Respiratory Rate 19 11/10/2024 9:15 AM CDT Oxygen Saturation 100% 11/10/2024 9:15 AM CDT Inhaled Oxygen Concentration - - Weight 99.8 kg (220 lb) 11/10/2024 5:19 AM CDT Height 170.2 cm (5' 7) 11/10/2024 5:19 AM CDT Body Mass Index 34.46 11/10/2024 5:19 AM CDT Plan of Treatment Health Maintenance Due Date Last Done Comments Hepatitis B Immunization (1 of 3 - 19+ 3-dose series) 1997 Pneumococcal Immunization Combined (1 of 2 - PCV) 1997 Cologuard 10/25/2023 Immunochemical Fecal Occult Blood 10/25/2023 06/05/2022 Influenza Immunization (#1) 2024 SARS-COV-2 Immunization ( - 2024- season) 2024 Colonoscopy 06/21/2032 06/21/2022, 10/04/2018 Colorectal Cancer Screening 06/21/2032 Respiratory Syncytial Virus (RSV) Immunization (Adult) (1 - 1-dose 75+ series) 2053 DTaP/Tdap/Td Immunization Discontinued 2020, 02/11/2013 TdaP Immunization Completed 09/06/2020, 02/11/2013 Human Papillomavirus (HPV) Immunization Aged Out No longer eligible based on patient's age to complete this topic Meningococcal Immunization (ACWY) Aged Out No longer eligible based on patient's age to complete this topic Rotavirus Immunization Aged Out No lo nger eligible based on patient's age to complete this topic Medical Devices Implanted Type Area Carder Blankets Device Identifier Shelf Expiration Date Model / Serial / Lot Stent Ureteral 6fr 2.1fr 26cm 2 Pigtail Curve 2 Durometer Taper Tip Loprfl Graduated Polaris Ultra - [id number] Implanted:Qty : 1 on 06/01/2022 by Jonathan Roth MD at [facility] IMPLANT Left: Ureter ShipEarly 04/05/2025 [id number] / [id number] / [id number] Procedures Procedure Name Priority Date/Time Associated Diagnosis Comments TROPONIN I, HIGH SENSITIVITY (HSTRP) STAT 11/10/2024 8:02 AM CDT UR SODIUM (NA) RANDOM STAT 11/10/2024 7:10 AM CDT UR OSMOLALITY STAT 11/10/2024 7:10 AM CDT UR CREATININE RANDOM STAT 11/10/2024 7:10 AM CDT URINE DRUG SCREEN STAT 11/10/2024 7:1 0 AM CDT URINALYSIS REFLEX IF INDICATED BY ABNORMAL RESULTS STAT 11/10/2024 7:[address] ANGIO CHEST W/WO CONTRAST WITH PP (POST PROCESSING) Stat with Interpretation 11/10/2024 7:04 AM CDT XR CHEST SINGLE VIEW PORTABLE STAT 11/10/2024 5:55 AM CDT RSV,SARS-COV-2,INF LUENZA A&B BY PCR STAT 11/10/2024 5:52 AM CDT EKG 12 LEAD STAT 11/10/2024 5:50 AM CDT CBC WITH AUTO DIFFERENTIAL STAT 11/10/2024 5:41 AM CDT PHOSPHORUS (PO4) STAT 11/10/2024 5:41 AM CDT MAGNESIUM (MG) STAT 11/10/2024 5:41 AM CDT N-TERMINAL- PRO B TYPE NATRIURETIC PEPTIDE STAT 11/10/2024 5:41 AM CDT TROPONIN I, HIGH SENSITIVITY (HSTRP) STAT 11/10/2024 5:41 AM CDT D-DIMER STAT 11/10/2024 5:41 AM CDT COMPLETE BLOOD COUNT (CBC) WITH DIFF STAT 11/10/2024 5:41 AM CDT CMP (COMPREHENSIVE METABOLIC PANEL) STAT 11/10/2024 5:41 AM CDT EKG SCAN 11/10/2024 12:00 AM CDT CTA GENERIC 11/10/2024 12:00 AM CDT STOOL, OCCULT BLOOD, DIAGNOSTIC, VIA GUAIAC STAT 06/05/2022 4:09 AM CDT from Last 3 Months or Most Recently Relevant to Health Maintenance Results * TROPONIN I, HIGH SENSITIVITY (HSTRP) (11/10/2024 8:02 AM CDT) Only the most recent of2 resultswithin the time period is included. [facility] TROPONIN I, HIGH SENSITIVITY- MTZ 5.1 <=35.0 ng/L 11/10/2024 8:47 AM CDT [facility] Comment: High-sensitivity troponin I results are reported in ng/L making the result appear to be 1,000 times higher than the contemporary troponin I value which is reported in ng/ml. Results from Mtz. Blood Venipuncture / Unknown 11/10/2024 8:02 AM CDT 11/10/2024 8:22 AM CDT us Roz Tamez MD CHEMISTRY ORDERABLES Rohini l Result [facility] [address] [place] [address] * (ABNORMAL) Urinalysis w/ Reflex (11/10/2024 7:10 AM CDT) [facility] SPECIFIC GRAVITY 1.030 1.003 - 1.030 11/10/2024 7:45 AM CDT [facility] URINE PH 5.0 5.0 - 9.0 11/10/2024 7:45 AM CDT [facility] WBC ESTERASE Negative Negative 11/10/2024 7:45 AM CDT [facility] NITRITE Negative Negative 11/10/2024 7:45 AM CDT [facility] PROTEIN, RANDOM URINE 30 mg/dL(A) Negative 11/10/2024 7:45 AM CDT [facility] URINE GLUCOSE, QUAL 250 mg/dL(A) Negative 11/10/2024 7:45 AM CDT [facility] URINE KETONES Negative Negative 11/10/2024 7:45 AM CDT [facility] UROBILINOGEN Normal Normal mg/dL 11/10/2024 7:45 AM CDT [facility] URINE BLOOD 25 /uL(A) Negative brittny/ul 11/10/2024 7:45 AM CDT [facility] URINALYSIS COLOR Yellow 11/11/19 7:45 AM CDT [facility] URINALYSIS CLARITY Clear 11/10/2024 7:45 AM CDT [facility] WBC (Urine) 0-5 Negative, 0-5 /hpf 11/10/2024 7:45 AM CDT [facility] URINE RBC'S 0-2 Negative, 0-2 /hpf 11/10/2024 7:45 AM CDT [facility] EPITHELIAL CELLS Negative /lpf 11/11/19 7:45 AM CDT [facility] BACTERIA, URINE Negative Negative /hpf 11/10/2024 7:45 AM CDT [facility] CRYSTALS Calcium oxalate 11/10/2024 7:45 AM CDT [facility] Urine URINE SPECIMEN / Unknown Non-Phlebotomy Collection / Unknown 11/10/2024 7:10 AM CDT 11/10/2024 7:18 AM CDT us John Posada MD URINE ORDERABLES Final Result [facility] [address] [place] [address] * Ur Sodium (Na) Random (11/10/2024 7:10 AM CDT) SODIUM, RANDOM URINE 78 mmol/L 11/10/2024 3:43 PM CDT [facility] Comment:No reference range h as been established. Consider Clinical Correlation. Urine Non-Phlebotomy Collection / Unknown 11/10/2024 7:10 AM CDT 11/10/2024 7:20 AM CDT John Posada MD URINE ORDERABLES Final Result [facility] [address] [place] [address], [place] * Ur Osmolality (11/10/2024 7:10 AM CDT) OSMOLALITY, URINE 852 50 - 1,400 mOsm/kg 11/10/2024 5:54 PM CDT [facility] Urine Non-Phlebotomy Collection / Unknown 11/10/2024 7:10 AM CDT 11/10/2024 7:20 AM CDT Narrative [facility] - 11/10/2024 5:54 PM CDT Result is an averaged value John Posada MD URINE ORDERABLES Final Result [facility] [address] [place] [address], [place] * Ur Creatinine Random (11/10/2024 7:10 AM CDT) CREATININE URINE 284.5 mg/dL 11/10/2024 8:28 AM CDT [facility] Comment:No reference range h as been established. Consider Clinical Correlation. Urine Non-Phlebotomy Collection / Unknown 11/10/2024 7:10 AM CDT 11/10/2024 7:20 AM CDT us John Posada MD URINE ORDERABLES Final Result [facility] [address] [place] [address] * (ABNORMAL) Urine Drug Screen (11/10/2024 7:10 AM CDT) [facility] UR AMPHETAMINE DETECTED(A) NON DETECTED 11/10/2024 7:54 AM CDT [facility] Comment: FOR MEDICAL USE ONLY. CUTOFF CONCENTRATION FOR DETECTED RESULT: AMPHETAMINE: 500 NG/ML UR BENZODIAZEPINES NON DETECTED NON DETECTED 11/10/2024 7:54 AM CDT [facility] Comment: FOR MEDICAL USE ONLY. CUTOFF CONCENTRATION FOR DETECTED RESULT: BENZODIAZAPINE: 200 NG/ML UR COCAINE METABOLITE NON DETECTED NON DETECTED 11/10/2024 7:54 AM CDT [facility] Comment: FOR MEDICAL USE ONLY. CUTOFF CONCENTRATION FOR DETECTED RESULT: COCAINE: 150 NG/ML UR OPIATES NON DETECTED NON DETECTED 11/10/2024 7:54 AM CDT [facility] Comment: FOR MEDICAL USE ONLY. CUTOFF CONCENTRATION FOR DETECTED RESULT: OPIATES: 300 NG/ML UR PHENCYCLIDINE NON DETECTED NON DETECTED 11/10/2024 7:54 AM CDT [facility] Comment: FOR MEDICAL USE ONLY. CUTOFF CONCENTRATION FOR DETECTED RESULT: PCP: 25 NG/ML UR CANNABINOID NON DETECTED NON DETECTED 11/10/2024 7:54 AM CDT [facility] Comment: FOR MEDICAL USE ONLY. CUTOFF CONCENTRATION FOR DETECTED RESULT: THC (MARIJUANA): 50 NG/ML UR BARBITURATE NON DETECTED NON DETECTED 11/10/2024 7:54 AM CDT [facility] Comment: FOR MEDICAL USE ONLY. CUTOFF CONCENTRATION FOR DETECTED RESULT: BARBITUATES: 200 NG/ML UR FENTANYL NON DETECTED NON DETECTED 11/10/2024 7:54 AM CDT [facility] Comment: FOR MEDICAL USE ONLY. CUTOFF CONCENTRATION FOR DETECTED RESULT: FENTANYL: 1.0 NG/ML Urine Non-Phlebotomy Collection / Unknown 11/10/2024 7:10 AM CDT 11/10/2024 7:20 AM CDT us John Posada MD URINE ORDERABLES Final Result [facility] [address] [place] [address] * CT ANGIO CHEST W/WO CONTRAST WITH PP (POST PROCESSING) (11/10/2024 7:04 AM CDT) Anatomical Region Laterality Modality vascular N/A Computed Tomogra phy 11/10/2024 7:04 AM CDT Impressions 11/10/2024 8:16 AM CDT IMPRESSION: 1. No acute thromboembolic disease. 2. Mild bronchial wall thickening may represent mild bronchiolitis. No focal consolidations. The preliminary report and any related communication were provided by After Hours service, as documented in the medical record. Narrative 11/10/2024 8:16 AM CDT DICTATING PHYSICIAN: Ruddy Upton M.D. EXAM: CT ANGIO CHEST W/WO CONTRAST WITH PP (POST PROCESSING) HISTORY: Pulmonary embolism (PE) suspected, high prob Technique: Axial CT acquisition following IV contrast. Sagittal, coronal and coronal MIP reconstructions were obtained. Radiation dose reduction technique(s) were used. Comparison: None. FINDINGS: 1. Evaluation for thromboembolic disease: - Main pulmonary arteries: no thromboembolic disease - Lobar pulmonary arteries: no thromboembolic disease - Segmental pulmonary arteries: no thromboembolic disease - Subsegmental pulmonary arteries: no thromboembolic disease 2. Lines, Tubes, and Devices: N/A 3. Lungs and Pleura: Mild bronchial wall thickening. No focal consolidations. No pleural effusions or pneumothorax. 4. Cardiomediastinal silhouette: No pericardial effusion. The ascending and descending thoracic and is normal in caliber. No coronary calcifications. 5. Neck base: Unremarkable 6. Thoracic lymph nodes: No mediastinal adenopathy. 7. Bones and Soft tissues: Mild degenerative change of the spine. 8. Upper abdomen: No acute findings. A simple left renal cyst is partially imaged. This is better demonstrated on 06/05/2022 CT abdomen and pelvis. Procedure Note Ruddy Upton MD - 11/10/2024 DICTATING PHYSICIAN: Ruddy Upton M.D. EXAM: CT ANGIO CHEST W/WO CONTRAST WITH PP (POST PROCESSING) HISTORY: Pulmonary embolism (PE) suspected, high prob Technique: Axial CT acquisition following IV contrast. Sagittal, coronaland coronal MIP reconstructions were obtained. Radiation dose reduction technique(s) were used. Comparison: None. FINDINGS: 1. Evaluation for thromboembolic disease: - Main pulmonary arteries: no thromboembolic disease - Lobar pulmonary arteries: no thromboembolic disease - Segmental pulmonary arteries: no thromboembolic disease - Subsegmental pulmonary arteries: no thromboembolic disease 2. Lines, Tubes, and Devices: N/A 3. Lungs and Pleura: Mild bronchial wall thickening. No focalconsolidations. No pleural effusions or pneumothorax. 4. Cardiomediastinal silhouette: No pericardial effusion. The ascendingand descending thoracic and is normal in caliber. No coronarycalcifications. 5. Neck base: Unremarkable 6. Thoracic lymph nodes: No mediastinal adenopathy. 7. Bones and Soft tissues: Mild degenerative change of the spine. 8. Upper abdomen: No acute findings. A simple left renal cyst ispartially imaged. This is better demonstrated on 06/05/2022 CT abdomen andpelvis. IMPRESSION: 1. No acute thromboembolic disease. 2. Mild bronchial wall thickening may represent mild bronchiolitis. Nofocal consolidations. The preliminary report and any related communication were provided byAfter Hours service, as documented in the medical record. John Posada MD IM CT ORDERABLES Rohini l Result * XR CHEST SINGLE VIEW PORTABLE (11/10/2024 5:55 AM CDT) Anatomical Region Laterality Modality Chest N/A Computed Radiogr aphy 11/10/2024 5:55 AM CDT Impressions 11/10/2024 5:58 AM CDT IMPRESSION: 1. No acute abnormality identified. Narrative 11/10/2024 5:58 AM CDT DICTATING PHYSICIAN: Earl Nash EXAM: XR CHEST SINGLE VIEW PORTABLE DATE: 11/10/2024 5:55 AM COMPARISON: June 15, 2023 CLINICAL HISTORY: Ordering clinician listed reason for examination Chest Pain/ REFERRING PROVIDER: ROZ TAMEZ FINDINGS: Chest single view. Normal heart size. No airspace consolidation, pneumothorax, or pleural effusion. No significant change. Procedure Note Earl Nash MD - 11/10/2024 DICTATING PHYSICIAN: Earl Nash EXAM: XR CHEST SINGLE VIEW PORTABLE DATE: 11/10/2024 5:55 AM COMPARISON: June 15, 2023 CLINICAL HISTORY: Ordering clinician listed reason for examination ChestPain/ REFERRING PROVIDER: ROZ TAMEZ FINDINGS: Chest single view. Normal heart size. No airspaceconsolidation, pneumothorax, or pleural effusion. No significant change. IMPRESSION: 1. No acute abnormality identified. Roz Tamez MD IMG DIAGNOSTIC ORDERABLES Final Result * RSV,SARS-COV-2,INFLUENZA A&B BY PCR (11/10/2024 5:52 AM CDT) Pathologist [facility] FLU A Negative Negative, Error 11/10/2024 6:59 AM CDT [facility] FLU B Negative Negative 11/10/2024 6:59 AM CDT [facility] RESP SYNC VIRUS Negative Negative 6:59 AM CDT [facility] SARSCOV2 NOT DETECTED (Reference Range for this test is Not Detected) 11/10/2024 6:59 AM CDT [facility] Comment:This test was perfor med by a Reverse Media Liaison Officer PCR Method. Nasal NASOPHARYNGEAL STRUCTURE / Unknown Non-Phlebotomy Collection / Unknown 11/10/2024 5:52 AM CDT 11/10/2024 5:55 AM CDT Roz Tamez MD MICROBIOLOGY - GENERAL OR DERABLES Final Result [facility] [address] [place] [address] * EKG 12 LEAD (11/10/2024 5:50 AM CDT) Ventricular Rate 85 BPM EXTERNAL EKG Atrial Rate 85 BPM EXTERNAL EKG P-R Interval 176 ms EXTERNAL EKG QRS Duration 98 ms EXTERNAL EKG Q-T Duration 390 ms EXTERNAL EKG QTC CALCULATION 464 ms EXTERNAL EKG P [place] 67 degrees EXTERNAL EKG R [place] 0 degrees EXTERNAL EKG T [place] 33 degrees EXTERNAL EKG 11/10/2024 5:50 AM CDT Impressions EXTERNAL EKG - 11/10/2024 4:05 PM CDT Normal sinus rhythm Nonspecific T wave abnormality Abnormal ECG When compared with ECG of 18-JUN-2022 19:56, Nonspecific T wave abnormality now evident in Anterior leads Confirmed by MAGED FRANK ([id number]) on 11/10/2024 4:05:33 PM Narrative Procedure Note Maged Frank MD - 11/10/2024 IMPRESSION: Normal sinus rhythm Nonspecific T wave abnormality Abnormal ECG When compared with ECG of 18-JUN-2022 19:56, Nonspecific T wave abnormality now evident in Anterior leads Confirmed by MAGED FRANK ([id number]) on 11/10/2024 4:05:33 PM us Roz Tamez MD IMG ECG ORDERABLES Final Result EXTERNAL EKG * NT-proBNP (11/10/2024 5:41 AM CDT) Pathologist [facility] NT PROBNP 82.8 <450.0 pg/mL 11/10/2024 6:13 AM CDT [facility] Comment: AGE pg/mL INTERPRETATION All <300 Negative: HF (Heart Failure) unlikely 18 to <50 >=300.0 to <450.0 Indeterminate. Consider other causes of NT-proBNP elevation 50 to 75 >=300.0 to <900.0 Indeterminate. Consider other causes of NT-proBNP elevation >75 >=300.0 to <1800.0 Indeterminate. Consider other causes of NT-proBNP elevation 18 to <50 >=450.0 Positive: HF likely 50 to 75 >=900.0 Positive: HF likely >75 >=1800.0 Positive: HF likely Total protein levels at or above 12.6 mg/dl may falsely decrease NT-proBNP values. Blood Venipuncture / Unknown 11/10/2024 5:41 AM CDT 11/10/2024 5:45 AM CDT us Roz Tamez MD CHEMISTRY ORDERABLES Rohini lisandra Result [facility] [address] [place] [address] * CBC with Auto Differential (11/10/2024 5:41 AM CDT) WBC 7.45 4.00 - 12.00 10(3)/mcL 11/10/2024 5:49 AM CDT [facility] RBC 4.99 4.40 - 5.80 10(6)/mcL 11/10/2024 5:49 AM CDT [facility] HEMOGLOBIN (HGB) 15.3 13.0 - 16.5 g/dL 11/10/2024 5:49 AM CDT [facility] HEMATOCRIT (HCT) 44.6 38.0 - 50.0 % 11/10/2024 5:49 AM CDT [facility] MCV 89.4 82.0 - 96.0 fL 11/10/2024 5:49 AM CDT [facility] MCH 30.7 26.0 - 32.0 pg 11/10/2024 5:49 AM CDT [facility] MCHC 34.3 31.0 - 36.0 g/dL 11/10/2024 5:49 AM CDT [facility] PLATELET COUNT 257 140 - 440 10(3)/mcL 11/10/2024 5:49 AM CDT [facility] RDW 12.6 11.8 - 15.5 % 11/10/2024 5:49 AM CDT [facility] MPV 10.5 8.0 - 12.6 fL 11/10/2024 5:49 AM CDT [facility] NEUTROPHILS 44.9 40.0 - 68.0 % 11/10/2024 5:49 AM CDT [facility] LYMPHOCYTES 44.2 19.0 - 49.0 % 11/10/2024 5:49 AM CDT [facility] MONOCYTES 7.7 3.0 - 13.0 % 11/10/2024 5:49 AM CDT [facility] EOSINOPHILS 2.1 0.0 - 8.0 % 11/10/2024 5:49 AM CDT [facility] BASOPHILS 0.8 0.0 - 1.0 % 11/10/2024 5:49 AM CDT [facility] IMMATURE GRANULOCYTE 0.3 0.0 - 0.4 % 11/10/2024 5:49 AM CDT [facility] ABSOLUTE NEUTROPHILS 3.35 1.40 - 5.30 10(3)/[facility] 11/10/2024 5:49 AM CDT [facility] ABSOLUTE LYMPHOCYTES 3.29 0.90 - 3.30 10(3)/[facility] 11/10/2024 5:49 AM CDT [facility] ABSOLUTE MONOCYTES 0.57 0.10 - 0.90 10(3)/[facility] 11/10/2024 5:49 AM CDT [facility] ABSOLUTE EOSINOPHIL 0.16 0.00 - 0.50 10(3)/[facility] 11/10/2024 5:49 AM CDT [facility] ABSOLUTE BASOPHILS 0.06 0.00 - 0.10 10(3)/[facility] 11/10/2024 5:49 AM CDT [facility] ABSOLUTE IMMATURE GRANULOCYTE 0.02 0.00 - 0.03 10 (3) mcL. 11/10/2024 5:49 AM CDT [facility] NRBC PER 100 WBC 0 11/11/19 5:49 AM CDT [facility] Blood Venipuncture / Unknown 11/10/2024 5:41 AM CDT 11/10/2024 5:45 AM CDT Roz Tamez MD HEMATOLOGY ORDERABLES Fin al Result Performing Organization Address [facility] Co de Phone Number [facility] [address] [place] [address] * (ABNORMAL) Phosphorus (PO4) Serum (11/10/2024 5:41 AM CDT) PHOSPHORUS 4.8(H) 2.5 - 4.5 mg/dL 11/10/2024 7:07 AM CDT [facility] Blood Venipuncture / Unknown 11/10/2024 5:41 AM CDT 11/10/2024 5:45 AM CDT John Posada MD CHEMISTRY ORDERABLES F inal Result Performing Organization Address [facility] Co de Phone Number [facility] [address] [place] [address] * Magnesium (Mg) [id number] (11/10/2024 5:41 AM CDT) Pathologist [facility] MAGNESIUM 2.0 1.6 - 2.6 mg/dL 11/10/2024 7:07 AM CDT [facility] Blood Venipuncture / Unknown 11/10/2024 5:41 AM CDT 11/10/2024 5:45 AM CDT John Posada MD CHEMISTRY ORDERABLES F inal Result Performing Organization Address City/[facility] Co de Phone Number [facility] [address] [place] [address] * D-Dimer (11/10/2024 5:41 AM CDT) D DIMER <=0.27 <0.50 mcg/mL FEU 11/10/2024 6:04 AM CDT [facility] Blood Venipuncture / Unknown 11/10/2024 5:41 AM CDT 11/10/2024 5:45 AM CDT Narrative [facility] - 11/10/2024 6:04 AM CDT The FDA has approved this method to exclude the diagnosis of DVT and/or PE at the cutoff value of <0.50 mcg/mL FEU. us Roz Tamez MD HEMATOLOGY ORDERABLES Fin al Result [facility] [place] [address] * (ABNORMAL) CMP (Comprehensive Metabolic Panel) (11/10/2024 5:41 AM CDT) SODIUM 138 136 - 145 mmol/L 11/10/2024 6:10 AM CDT [facility] POTASSIUM 4.0 3.5 - 5.1 mmol/L 11/10/2024 6:10 AM CDT [facility] CHLORIDE 104 98 - 107 mmol/L 11/10/2024 6:10 AM CDT [facility] CO2, VENOUS 21(L) 22 - 30 mmol/L 11/10/2024 6:10 AM CDT [facility] ANION GAP 17.0 <18.0 mmol/L 11/10/2024 6:10 AM CDT [facility] GLUCOSE 128(H) 70 - 99 mg/dL 11/10/2024 6:10 AM CDT [facility] LAB BUN 22(H) 9 - 21 mg/dL 11/10/2024 6:10 AM CDT [facility] CREATININE, BLOOD 1.84(H) 0.70 - 1.30 mg/dL 11/10/2024 6:10 AM CDT [facility] BUN/CREATININE RATIO 12 12 - 20 ratio 11/10/2024 6:10 AM CDT [facility] TOTAL PROTEIN 7.3 6.0 - 8.0 g/dL 11/10/2024 6:10 AM CDT [facility] ALBUMIN 4.3 3.5 - 5.0 g/dL 11/10/2024 6:10 AM [facility] A/G RATIO 1.4 1.0 - 2.2 11/10/2024 6:10 AM [facility] CALCIUM 9.2 8.7 - 10.5 mg/dL 11/10/2024 6:10 AM [facility] T BILI 1.3(H) 0.2 - 1.2 mg/dL 11/10/2024 6:10 AM T [facility] SGOT (AST) 51(H) <43 U/L 11/10/2024 6:10 AM [facility] SGPT (ALT) 75(H) <56 U/L 11/10/2024 6:10 AM [facility] ALKALINE PHOSPHATASE 83 40 - 150 U/L 11/10/2024 6:10 AM [facility] GFR, ESTIMATED 45(L) >=60 11/10/2024 6:10 AM [facility] Comment: Creatinine Clearance is the preferred criteria for selecting drug dose adjustments in renally impaired patients. The GFR is provided as additional pertinent clinical information. GFR is reported in mL/min/1.73 sq m. Calculation based on the 2020 Chronic Kidney Disease Epidemiology Collaboration (CKD-EPI) equation refit without adjustment for race. GFR, EST. 48(L) >=60 025 6:10 AM [facility] Comment: Creatinine Clearance is the preferred criteria for selecting drug dose adjustments in renally impaired patients. The GFR is provided as additional pertinent clinical information. GFR is reported in mL/min/1.73 sq m. Calculation based on the 2009 Chronic Kidney Disease Epidemiology Collaboration (CKD-EPI). GFR, EST. NONAFRICAN 40(L) >=60 11/10/2024 6:10 AM [facility] Comment: Creatinine Clearance is the preferred criteria for selecting drug dose adjustments in renally impaired patients. The GFR is provided as additional pertinent clinical information. GFR is reported in mL/min/1.73 sq m. Calculation based on the 2008 Chronic Kidney Disease Epidemiology Collaboration (CKD-EPI). Blood Venipuncture / Unknown 11/10/2024 5:41 AM CDT 11/10/2024 5:45 AM CDT Roz Tamez MD CHEMISTRY ORDERABLES Rohini l Result Performing Organization Address City/[facility] Co de Phone Number [facility] [place] [address] * EKG SCAN (11/10/2024 12:00 AM CDT) 11/10/2024 Provider Scan IMG ECG ORDERABLES Final Result Performing Organization Address [facility] Co de Phone Number RESULTING AGENCY * CTA MISCELLANEOUS (11/10/2024 12:00 AM CDT) 11/10/[address] ORDERABLES Final Result Performing Organization Address [facility] Co de Phone Number SCAN * (ABNORMAL) Stool Occult Blood - Diagnostic (06/05/2022 4:09 AM CDT) OCCULT BLOOD DIAG Positive(A ) Negative 06/05/2022 5:32 AM CDT [facility] Stool Non-Phlebotomy Collection / Unknown 06/05/2022 4:09 AM CDT 06/05/2022 5:06 AM CDT Roz Tamez MD BODY FLUIDS & STOOLS ORDE RABLES Final Result Performing Organization Address [facility] Co de Phone Number [facility] [place] [address] from Last 3 Months or Most Recently Relevant to Health Maintenance Insurance MEDICAID [place] Advance Directives * Full Code (Latest Code Status on File) Date Activated Date Inactivated Comments 06/05/2022 6:16 AM 06/06/2022 5:13 PM CPR-Full Gucci atment: FULL ARREST: Attempt Resuscitation/CPR wit intubation and mechanical ventilation. PRE-ARREST: Use entire range of life support measures to stabilize the patient. * Full Code Date Activated Date Inactivated Comments 05/31/2022 2:09 PM 06/01/2022 4:48 PM CPR-Full Gucci atment: FULL ARREST: Attempt Resuscitation/CPR wit intubation and mechanical ventilation. PRE-ARREST: Use entire range of life support measures to stabilize the patient. Care Teams Dog License Officer Supervisor Relationship Specialty Start Date End Date Provider, None ID PCP - General 03/17/23
--- OUTSIDE RECORDS SUMMARY | 2024-12-06 17:58 | XMS_ITS | Encounter Summary ---
Author Organization [facility] Address [address] [place] [address] Care Team Providers Care Locksmith Apprentice Name Role Phone Conversion, History Primary Care Provider April bello Encounter Details Date Type Department Care Team (Late st Contact Info) Description 09/03/2006 Outpatient Historical [facility] Trauma and General Surgery [address] [place] [address] Mark Akbar MD [address] [place] [address] Social History Tobacco Use Types Packs/Day Years Used Date Smoking Tobacco: Never Assessed Sex and Gender Information Value Date Recorded Sex Assigned at Not on file 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
--- OUTSIDE RECORDS SUMMARY | 2024-12-06 17:58 | XMS_ITS | Encounter Summary ---
Author Organization [facility] Address 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
[2024-12-06 18:06] VITALS: BP 149/105; BP 156/102; PULSE 95; RESP 24; TEMP 36.6; O2SAT 100
--- NOTE | 2024-12-06 18:46 | ED_ITS ---
HPI - URI/Sore Throat General Chief Complaint: Upper Respiratory Infection Stated Complaint: Shortness of Breath/Cough/Body Aches Time Seen by Provider: 12/06/24 18:46 Source: patient Mode of arrival: ambulatory Limitations: no limitations History of Present Illness HPI Narrative: 44-year-old male presents with complaint of body aches, fatigue, cough, chest congestion, chills for 4 days. reports intermittent shortness of breath. Afebrile. Not taking any [id number]-[id number] medications to treat symptoms. Patient states body aches or so bad I feel that my blood is plagued . All systems reviewed and negative except as noted above. Related Data Allergies Allergy/AdvReac Type Severity Reaction Status Date / Time No Known Allergies Allergy Verified 12/06/24 18:13 [facility] Past Medical History Medical History Grade 3 separation of right shoulder Hypertension Surgical History Surgical History History of bunionectomy History of eye surgery eye muscle surgery History of hip surgery History of knee surgery History of thumb surgery Family History Family History Other No significant family history Social History Social History Additional smoking assessment comments: Denies tobacco use Alcohol intake: unknown Substance use: unknown Living arrangements: with family Gender identity (if verbalized by the patient): Male Comments At time of signature, agree with nursing past medical, surgical, social and family history. There is no relevant family history pertinent to the presenting complaint. Exam Narrative: GENERAL: This is a well-nourished, well-developed patient, Ill-appearing but in no acute distress HEAD: normocephalic, atraumatic. EYES: PERRL. Sclera clear/white. Vision is grossly intact. EARS: External ears normal, auditory canals clear and without drainage, TMs normal without perforation. Hearing grossly intact. NOSE: External nose normal with no obvious nasal discharge, nares without redness, no rhinorrhea. THROAT: Mucous membranes moist, posterior pharynx clear. NECK: Neck supple, non-tender without lymphadenopathy, masses or thyromegaly. CARDIOVASCULAR: Regular rate and rhythm without murmurs, gallops, or rubs. RESPIRATORY: Clear to auscultation. Breath sounds equal bilaterally. No wheezes, rales, or rhonchi. SKIN: warm, Dry, intact with no suspicious lesions or rash, good texture and turgor. NEURO: awake, alert, and oriented to person, place and time. There were no obvious focal neurologic abnormalities. EXTREMITIES: No joint tenderness, effusion, or edema noted. Course Course Level of Care: Express Care Visit Vital Signs Vital signs: Vital Signs Temperature 36.6 C 12/06/24 18:06 Pulse Rate 95 12/06/24 18:06 Respiratory Rate 24 H 12/06/24 18:06 Blood Pressure 156/102 H 12/06/24 18:06 Pulse Oximetry 100 12/06/24 18:06 Oxygen Delivery Room Air 12/06/24 18:06 Temperature 36.6 C 12/06/24 18:06 Pulse Rate 95 12/06/24 18:06 Respiratory Rate 24 H 12/06/24 18:06 Blood Pressure 149/105 H 12/06/24 18:06 Pulse Oximetry 100 12/06/24 18:06 Oxygen Delivery Room Air 12/06/24 18:06 Reviewed MDM - URI/Sore Throat MDM Narrative Medical decision making narrative: positive rapid COVID. Chest x-ray negative for pneumonia. Body aches improved after ibuprofen. Recommend duam-zhl-dldnwtx medications to treat viral symptoms. Patient is alert, nontoxic. Differential Diagnosis Differential diagnosis: Likely upper respiratory infection, viral infection, influenza, pharyngitis and other ( COVID) Imaging Data My impression: agree with radiologist Radiologist's impression: EXAMINATION: XR chest 2V, 12/06/2024 18:50 CDT HISTORY: covid +, SOB COMPARISON: No comparisons available. Technique: 2 views obtained. Findings: The lungs are clear, no effusion. No pneumothorax. Heart is normal size. Mediastinal and hilar contours are within normal limits. Bony thorax no acute abnormality. Impression: No acute cardiopulmonary abnormality. Discharge Plan Discharge Clinical Impression: COVID-19 Patient Disposition: Home Condition: Stable Instructions: COVID-19 (Coronavirus Disease 2019) (ED) Additional Instructions: Your COVID test was positive today. COVID is a virus and symptoms may last 10-14 days. Take ibuprofen or Tylenol every 6-8 hours as needed for fever and p ain. Drink at least 64 oz water a day. Take cough medication as prescribed. Follow-up with your primary care physician if not improving. Patient Language: [place] Leonean Prescriptions: New benzonatate 200 mg capsule 200 mg PO TID PRN (Reason: cough) Qty: 20 0RF Follow-up/Referrals: PHYSICIAN,COMMISSIONED FIRE OFFICER [Primary Care Provider, Internal Medicine] Time of Disposition: 19:21
[2024-12-06 18:48] LABS: EDCOVIDSCREEN Positive (Negative); EDINFLUASCREEN Negative (Negative); EDINFLUBSCREEN Negative (Negative); EDSTREPNEGPOS1 Negative (Negative)
[2024-12-06] MEDS: IBUPROFEN 400 MG TABLET 800 MG PO (18:50)
== END 2024-12-06 19:31 | disposition home or self-care (01) ==
PROVIDERS: Emergency Provider Nurse Practitioner Family
DX: U07.1 COVID-19 (principal); I10 Essential (primary) hypertension
CPT/HCPCS: 71046; 87081; 87426; 87804; 87880; 99213; A9270; G0463